=== PATIENT | female | born 1975 | race Caucasian/White ===

== ENCOUNTER 2016-11-10 00:19 | Inpatient (IN) | payer OTHER ==
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
--- NOTE | ~2016-11-10 | DS ---
Unit #: [id number] #: [id number] Patient: DOROTHY VÁZQUEZ [id number] [facility] [address] [place] [address] [id number] MR#: [id number] NAME: DOROTHY VÁZQUEZ ROOM: P174 Age: 41 Sex: F Admission Date: 11/10/2016 : 1975 Discharge Date: 11/11/2016 Attending Physician: Bam Lucero M.D. Primary Care Physician: Colby Wilkins M.D. DISCHARGE SUMMARY REASON FOR ADMISSION Alcohol abuse, depressive symptom. DIAGNOSTIC STUDIES LABORATORY DATA: Unremarkable. HOSPITAL COURSE The patient was admitted to inpatient unit on 10/10/2016 and discharged on 10/11/2016. The patient was treated on the inpatient unit with group therapy, individual therapy and medication management. The patient responded well with the above modalities of treatment, and the patient requested to follow up on the outpatient basis. The patient was subsequently discharged with a plan to follow up in outpatient program IOP level of care. DISCHARGE MEDICATIONS 1. Celexa 20 mg daily for mood stabilization. 2. Zyprexa 10 mg at bedtime for mood stabilization. DISCHARGE DIAGNOSES PSYCHIATRIC: Major depressive disorder, recurrent, severe, F32.2. Posttraumatic stress disorder, chronic, F43.2 SECONDARY: Deferred. MEDICAL: Please refer to H and P. STRESSORS: Psychosocial stressor. FOLLOWUP CARE The patient to follow up in outpatient clinic as per social services analyst. CONDITION AT DISCHARGE The patient pleasant, cooperative. Denied any psychotic symptom or any suicidal ideation. PROGNOSIS Guarded. DIET AND ACTIVITY As tolerated. Dictated by... Bam Lucero M.D. Unit #: [id number] #: [id number] Patient: DOROTHY VÁZQUEZ SZC/bzg TD: 11/13/2016 07:13 JOB #: [id number] DISCHARGE SUMMARY Page 1 of 1 X Bam Lucero MD X DISCHARGE SUMMARY
--- NOTE | ~2016-11-10 | HP ---
Unit #: [id number] #: [id number] Patient: MADY VÁZQUEZ [id number] [place] [address] [id number] MR#: [id number] NAME: MADY VÁZQUEZ ROOM: P174 Age: 41 Sex: F Admission Date: 11/10/2016 : 1975 Attending Physician: Bam Lucero M.D. Admitting Physician: Bam Lucero M.D. Primary Care Physician: Colby Wilkins M.D. HISTORY AND PHYSICAL HISTORY OF PRESENT ILLNESS Mady is a 41 year old admitted to [facility] because of her continued abuse of alcohol. PAST MEDICAL HISTORY 1. Long history of alcohol abuse. 2. History of illicit substance abuse to include methamphetamine. PAST SURGICAL HISTORY Nothing reported. ALLERGIES No known drug allergies. SOCIAL HISTORY She does not smoke, drinks alcohol on a daily basis. Has a history of cocaine and methamphetamine use. FAMILY HISTORY Medically noncontributory. REVIEW OF SYSTEMS CONSTITUTIONAL: No fever or chills. HEENT: Denies any sore throat, ear pain or runny nose. CARDIOVASCULAR: Denies chest pain, irregular heart rhythm or palpitations. CHEST: Denies shortness of breath or cough. No hemoptysis. GASTROINTESTINAL: Denies nausea, vomiting, diarrhea or chronic constipation. ENDOCRINE: Denies history of increased thirst or urination. No recent significant weight loss or gain. GENITOURINARY: Denies dysuria, frequency, or hematuria. SKIN: Denies any rashes. HEMATOLOGIC: Denies history of increased bleeding or bruising. MUSCULOSKELETAL: Denies any hot, swollen joints. No generalized muscle pain. NEUROLOGIC: Denies problems with vision or speech. No frequent, severe headaches. No numbness, tingling or weakness in any extremities. Denies loss of bladder or bowel control. CURRENT MEDICATIONS 1. Detox protocol 2. Celexa 20 mg daily Unit #: [id number] #: [id number] Patient: MADY VÁZQUEZ 3. Zyprexa 10 mg q.h.s. PHYSICAL EXAMINATION GENERAL: Alert, well-nourished, in no apparent distress. VITAL SIGNS: Blood pressure 118/74, heart rate 80, respirations 16, temperature 98.6. WEIGHT: 195 pounds. HEIGHT: 5'7". SKIN: Warm and dry without rash or lesion. HEENT: Normocephalic. TMs not viewed. Oral and nasal passages clear. Conjunctivae clear. Pupils equal, round and reactive to light and accommodation. Extraocular movements intact. NECK: Supple without lymphadenopathy or thyromegaly. HEART: Regular rate and rhythm without murmur. LUNGS: Clear. ABDOMEN: Soft, nontender. : Not done. EXTREMITIES: No evidence of cyanosis, clubbing or edema. Moves all extremities without focal deficit. NEUROLOGICAL: Grossly within normal limits. Cranial Nerves: II: Visual morgan are intact. III, IV AND : Extraocular movements are intact. Pupils are equal, round and reactive to light. V: Facial sensation is grossly normal. VII: Facial movements and expression are normal. VIII: Auditory acuity grossly intact. IX, X: Uvula is midline. Phonation is normal. XI: Patient shrugs shoulders and turns head normally. XII: Tongue protrudes in the midline. Sensory and Motor Function: Sensory and motor sensation is grossly normal. Motor: moves all extremities well. Coordination: Gait is normal. Deep Tendon Reflexes: Intact. IMPRESSION Psychiatric admission RECOMMENDATIONS PSYCHIATRIC: Per psychiatrist. MEDICAL: I see no contraindications to participating in facility's activities. MEDICAL PROGNOSIS Good. MEDICAL CONDITION Stable. Dictated by... Harry RiveraANaima. for Cristina Romero/baljeet TD: 11/10/2016 23:18 JOB #: [id number] Unit #: [id number] #: [id number] Patient: MADY VÁZQUEZ HISTORY AND PHYSICAL Page 1 of 1 X Lara Middleton HISTORY AND PHYSICAL
[~2016-11-10 00:19] MED LIST: ANEXSIA 5/325 M1 TA1 PO; AUGMENTIN875 MG PO; IBUPROFEN600 MG PO; NO MEDICATIONS
[2016-11-10 16:06] LABS: BASOPHIL# 0.1 X10e3 (0-0.3); BASOPHIL% 0.8 % (0-2.5); EOSINOPHIL% 0.7 % (0.0-7.0); HEMOGLOBIN 12.9 gm/dL (12.0-16.0); LYMPHOCYTE# 2.5 X10e3 (1.0-3.5); LYMPHOCYTE% 38.1 % (17.0-45.0); MEAN CELL VOLUME 95.3 FL (83-96); MEAN CORPUSCULAR HEMOGLOBIN 31.4 PG (28-34); MEAN PLATELET VOLUME 7.6 FL (6.5-11.5); MONOCYTE# 0.9 X10e3 (0-1.0); NEUTROPHIL# 3.1 X10e3 (1.5-7.1); NEUTROPHIL% 47.4 % (40-75); PLATELET COUNT 258 X10e3 (140-420); RED BLOOD COUNT 4.09 X10e (3.90-5.30); RED CELL DISTRIBUTION WIDTH 13.9 % (11.0-15.5); WHITE BLOOD COUNT 6.6 X10e3 (4.0-10.5)
[2016-11-10 16:08] LABS: DIFF IND NO
[2016-11-10 16:26] LABS: THYROID STIMULATING HORMONE 3.17 uIU/ml (0.34-5.60)
[2016-11-10 16:35] LABS: FREE THYROXIN (T4) 0.9 ng/dL (0.58-1.64)
[2016-11-10 16:41] LABS: ALBUMIN SERUM 3.6 g/dL (3.5-5.0); BILIRUBIN,TOTAL 0.8 mg/dL (0.2-2.0); BUN/CREATININE RATIO 17.14; CALCIUM SERUM 9.3 mg/dL (8.4-10.2); CREATININE SERUM 0.7 mg/dL (0.6-1.4); GLOM FILT RATE Estimated 106.1 mL/min (>60); POTASSIUM 3.7 mmol/L (3.5-5.1); PROTEIN TOTAL SERUM 6.7 g/dL (6.0-8.3)
[2016-11-11 09:33] LABS: URINE APPEARANCE CLEAR; URINE BILIRUBIN NEG (NEG); URINE BLOOD NEG (NEG); URINE COLOR YELLOW; URINE GLUCOSE NEG (NEG); URINE KETONE NEG (NEG); URINE LEUKOCYTE ESTERASE TRACE (NEG); URINE NITRATE NEG (NEG); URINE PH 7.5 (5-8); URINE PROTEIN NEG (NEG); URINE SPECIFIC GRAVITY 1.007 (1.003-1.035); URINE UROBILINOGEN 0.2 MG/DL (NEG)
[2016-11-11 09:36] LABS: URINE BACTERIA AUWI NEG (NEGATIVE); URINE SQUAMOUS EPITHELIAL CELL OCC /[HPF]
[2016-11-11 10:24] LABS: URBCS1 AUWI 0-2 /[HPF] (0-2)
[2016-11-12 09:54] LABS: AMPHETAMINE NEG (NEG); BARBITURATES NEG (NEG); BENZODIAZEPINES POS (NEG); COCAINE NEG (NEG); MARIJUANA NEG (NEG); OPIATES NEG (NEG); TRICYCLIC ANTIDEPRESSANTS NEG (NEG); U METHADONE NEG (NEG)
== END 2016-11-11 16:00 | disposition home or self-care (01) | DRG 885 ==
LOC: P1E 00:19
PROVIDERS: Psychiatry & Neurology Psychiatry
DX: F33.2 Major depressive disorder, recurrent severe without psychotic features (principal); F10.10 Alcohol abuse, uncomplicated; F43.12 Post-traumatic stress disorder, chronic
CPT/HCPCS: 80053; 80307; 81003; 84439; 84443; 84703; 85025; 86592

== ENCOUNTER 2017-03-18 14:47 | Emergency (ER) | payer SELFPAY ==
[~2017-03-18] VITALS: Ht 157.5 cm; Wt 90.7 kg
== END 2017-03-18 16:10 | disposition home or self-care (01) ==
LOC: CED 14:47
DX: F10.129 Alcohol abuse with intoxication, unspecified (principal)
CPT/HCPCS: 99284